=== PATIENT | female | born 1930 | race Hispanic/Latino ===

== ENCOUNTER 2018-04-19 09:44 | Emergency (ER) | payer MEDICARE, OTHER ==
[2018-04-19 09:55] VITALS: RESP 18; TEMP 97.8; O2SAT 98; BMI 28.5
--- NOTE | 2018-04-19 10:12 | ED PDOC ---
Arrival/HPI - General Historian: Patient - General Chief Complaint: ENT Problem Time Seen by Provider: 04/19/18 10:08 - History of Present Illness Narrative History of Present Illness (Text): 04/19/18 10:08 87 year old female, pmh including htn/hld, allergic to codeine, complaining of q-tip cotton stuck in the left ear canal x 1 hour. Pt. stated that she was using the q-tip, cotton fall off and inside the left ear canal, no pain, no change in hearing, no headache, no night sweat, no rash, no other medical or psychological complaints. (Hi Jiang) Past Medical History - Provider Review Nursing Documentation Reviewed: Yes - Cardiac Hx Hypertension: Yes - Psychiatric Hx Depression: No Hx Emotional Abuse: No Hx Physical Abuse: No Hx Substance Use: No - Anesthesia Hx Anesthesia: No - Suicidal Assessment Feels Threatened In Home Enviroment: No Family/Social History - Physician Review Nursing Documentation Reviewed: Yes Family/Social History: Unknown Family HX Smoking Status: Never Smoked Hx Alcohol Use: No Hx Substance Use: No Hx Substance Use Treatment: No Allergies/Home Meds Allergies/Adverse Reactions: Allergies codeine Allergy (Severe, Verified 04/19/18 09:54) ANAPHYLAXIS Home Medications: Home Meds Medication Instructions Recorded Confirmed Aspirin 81 mg PO DAILY 03/29/12 03/29/12 Atorvastatin [Lipitor] 20 mg PO DAILY 03/29/12 03/29/12 Diltiazem HCl [Matzim LA] 360 mg PO DAILY 03/29/12 03/29/12 Review of Systems - Review of Systems Constitutional: absent: Fatigue, Fevers Eyes: absent: Vision Changes ENT: Other (lt. ear foreign body). absent: Hearing Changes Respiratory: absent: SOB, Cough Cardiovascular: absent: Chest Pain Gastrointestinal: absent: Abdominal Pain, Diarrhea, Nausea, Vomiting Skin: absent: Rash, Pruritis Neurological: absent: Headache, Dizziness Psychiatric: absent: Anxiety, Depression Physical Exam Vital Signs Reviewed: Yes Temperature: Afebrile Blood Pressure: Hypertensive Pulse: Regular Respiratory Rate: Normal Appearance: Positive for: Well-Appearing, Non-Toxic, Comfortable Pain Distress: None Mental Status: Positive for: Alert and Oriented X 3 - Systems Exam Head: Present: Atraumatic, Normocephalic Pupils: Present: PERRL Extroacular Muscles: Present: EOMI Conjunctiva: Present: Normal Ears: Present: Other (Ears: rt. TM hansa color and intact, lt. TM hansa color and intact, lt. auditory canal noted to have cotton noted appear to be the shaped of the q-tip, rt. auditory canal non-erythematous, no mastoid tenderness , hearing grossly intact and equal. ) Mouth: Present: Moist Mucous Membranes Neck: Present: Normal Range of Motion Respiratory/Chest: Present: Clear to Auscultation, Good Air Exchange. No: Respiratory Distress, Accessory Muscle Use Cardiovascular: Present: Regular Rate and Rhythm, Normal S1, S2. No: Murmurs Abdomen: No: Tenderness, Distention, Peritoneal Signs Back: Present: Normal Inspection Upper Extremity: Present: Normal Inspection. No: Cyanosis, Edema Lower Extremity: Present: Normal Inspection. No: Edema Neurological: Present: GCS=15, CN II-XII Intact, Speech Normal, Motor Func Grossly Intact, Gait Normal, Memory Normal Skin: Present: Warm, Dry, Normal Color. No: Rashes Psychiatric: Present: Alert, Oriented x 3, Normal Insight, Normal Concentration Vital Signs Temp Pulse Resp BP Pulse Ox 04/19/18 10:32 69 18 155/81 H 98 04/19/18 09:54 97.8 F 64 18 162/79 H 98 Medical Decision Making ED Course and Treatment: 04/19/18 10:13 -Lt. ear canal examined with the direct otoscope, removed with the alligaor forcep with single attempt, procedure time 5 minutes, successful and re- examined the ear show the following: Ears: Ears: rt. TM hansa color and intact, lt. TM hansa color and intact, lt. auditory canal no visible foreign bodies with no abrasion/laceration/ erythematous, rt. auditory canal non-erythematous with no abrasion/laceration, no mastoid tenderness, hearing grossly intact and equal. -Pt. feels 100% better, no change in hearing and no pain, no bleeding or complication from the procedure, request to be discharged home. -Discharge home with education on follow up with your own pmd and ENT within 2 days, return to the Emergency room for any new or worsening signs or symptoms. (Hi Jiang) - PA / OTM CONSULTANT / Resident Statement MD/DO has reviewed & agrees with the documentation as recorded. Disposition/Present on Arrival - Present on Arrival Any Indicators Present on Arrival: No History of DVT/PE: No History of Uncontrolled Diabetes: No Urinary Catheter: No History of Decub. Ulcer: No History Surgical Site Infection Following: None - Disposition Have Diagnosis and Disposition been Completed?: Yes Disposition Time: 10:16 Patient Plan: Discharge - Disposition Diagnosis: History of retained foreign body fully removed Disposition: HOME/ ROUTINE Condition: IMPROVED Additional Instructions: -Discharge home with education on follow up with your own pmd and ENT within 2 days, return to the Emergency room for any new or worsening signs or symptoms. Referrals: Jorge Luis Mendoza DO [Staff Provider] - Follow up with primary [facility] [place] [Outside] - Follow up with primary Forms: [facility] (Tajik), WORK NOTE
[2018-04-19 10:33] VITALS: BP 155/81; PULSE 69
== END 2018-04-19 10:44 | disposition home or self-care (01) ==
LOC: ED 09:44
DX: T16.2XXA Foreign body in left ear, initial encounter (principal); Y93.E8 Activity, other personal hygiene; I10 Essential (primary) hypertension; E78.5 Hyperlipidemia, unspecified; Z88.5 Allergy status to narcotic agent